=== PATIENT | female | born 1990 | race Caucasian/White ===

== ENCOUNTER 2021-01-03 14:47 | Emergency (ER) | payer OTHER, SELFPAY ==
--- NOTE | ~2021-01-03 | XR_ITS ---
Indication: Fall EXAMINATION: Pelvis and thoracic spine. Single view of the pelvis does not demonstrate evidence for fracture. 2 views of the thoracic spine does not show evidence for fracture. No listhesis or compression injury. XR/XR hip RT w PEL1V IMPRESSION: No acute bony finding thoracic spine, pelvis
--- NOTE | ~2021-01-03 | XR_ITS ---
Indication: Fall EXAMINATION: Pelvis and thoracic spine. Single view of the pelvis does not demonstrate evidence for fracture. 2 views of the thoracic spine does not show evidence for fracture. No listhesis or compression injury. XR/XR thoracic spine 2V IMPRESSION: No acute bony finding thoracic spine, pelvis
[2021-01-03 17:59] VITALS: BP 112/69; RESP 14; O2SAT 100; BMI 21.9
[2021-01-03] MEDS: Acetaminophen 325 MG TABLET 975 MG PO (18:58)
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
[2021-01-03 19:46] VITALS: BP 109/71; PULSE 83; RESP 16
== END 2021-01-03 19:50 | disposition home or self-care (01) ==
PROVIDERS: Emergency Provider Internal Medicine
DX: S70.01XA Contusion of right hip, initial encounter (principal); S39.012A Strain of muscle, fascia and tendon of lower back, initial encounter; V13.4XXA Pedal cycle driver injured in collision with car, pick-up truck or van in traffic accident, initial encounter; Y93.55 Activity, bike riding; Y92.414 Local residential or business street as the place of occurrence of the external cause; Y99.9 Unspecified external cause status
CPT/HCPCS: 72070; 73502; 99283; 99284

== ENCOUNTER 2022-04-22 14:33 | Outpatient (REF) | payer SELFPAY ==
[2022-04-22 15:03] LABS: COVID-19 Test Negative (Negative); IDNOW Serial# 55D5AD1C
== END 2022-04-22 14:34 | disposition home or self-care (01) ==
LOC: HO.LAB 14:33
PROVIDERS: Visit Provider Internal Medicine
DX: Z20.822 Contact with and (suspected) exposure to COVID-19 (principal)
CPT/HCPCS: 87635; C9803

== ENCOUNTER 2022-10-18 06:41 | Emergency (ER) | payer OTHER, SELFPAY ==
--- NOTE | ~2022-10-18 | XR_ITS ---
Examination: Right ankle and right foot. CLINICAL INDICATION: Injury. COMPARISON: None. TECHNIQUE: Right ankle 3 views. Right foot 3 views. FINDINGS: Right ankle: There is moderate lateral malleolar soft tissue swelling. No visible acute fracture, dislocation or subluxation seen. Ankle mortise and subtalar joints are normal. Right foot: There is no visible fracture, dislocation or joint abnormality. The soft tissues are normal. XR/XR foot RT 2V IMPRESSION: 1. Moderate lateral malleolar soft tissue swelling likely ligamentous injury. No visible acute fracture or dislocation seen. 2. Unremarkable right foot exam.
--- NOTE | ~2022-10-18 | XR_ITS ---
Examination: Right ankle and right foot. CLINICAL INDICATION: Injury. COMPARISON: None. TECHNIQUE: Right ankle 3 views. Right foot 3 views. FINDINGS: Right ankle: There is moderate lateral malleolar soft tissue swelling. No visible acute fracture, dislocation or subluxation seen. Ankle mortise and subtalar joints are normal. Right foot: There is no visible fracture, dislocation or joint abnormality. The soft tissues are normal. XR/XR ankle RT min 3V IMPRESSION: 1. Moderate lateral malleolar soft tissue swelling likely ligamentous injury. No visible acute fracture or dislocation seen. 2. Unremarkable right foot exam.
[2022-10-18 06:47] VITALS: BP 115/69; PULSE 88; RESP 18; TEMP 36.6; O2SAT 98; BMI 22.3
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
== END 2022-10-18 08:20 | disposition home or self-care (01) ==
PROVIDERS: Emergency Provider Emergency Medicine Emergency Medical Services
DX: S93.401A Sprain of unspecified ligament of right ankle, initial encounter (principal); V49.40XA Driver injured in collision with unspecified motor vehicles in traffic accident, initial encounter; Y93.9 Activity, unspecified; Y92.9 Unspecified place or not applicable
CPT/HCPCS: 73610; 73620; 99283

== ENCOUNTER → 2022-11-07 08:42 | Outpatient (BNVA) | payer OTHER, SELFPAY | PROVIDERS: Visit Provider Physician Assistant ==